=== PATIENT | female | born 1985 | race Two or more races ===

== ENCOUNTER 2017-10-22 00:55 | Emergency (ER) | payer OTHER ==
[~2017-10-22] VITALS: Ht 160 cm; Wt 63.5 kg
[2017-10-22 01:01] VITALS: BP 106/70
[2017-10-22] MEDS ORDERED: diphenhydrAMINE HCL 25 MG CAPSULE ONE (01:24)
[2017-10-22] MEDS ORDERED: diphenhydrAMINE HCL 25 MG CAPSULE PO ONE (01:30)
== END 2017-10-22 01:38 | disposition home or self-care (01) ==
LOC: ER 01:02
DX: R21 Rash and other nonspecific skin eruption (principal); T50.905A Adverse effect of unspecified drugs, medicaments and biological substances, initial encounter; R50.9 Fever, unspecified; F32.9 Major depressive disorder, single episode, unspecified; Z88.0 Allergy status to penicillin; Z88.2 Allergy status to sulfonamides; Y92.89 Other specified places as the place of occurrence of the external cause
CPT/HCPCS: 99282; A4606; Q0163; Z7610

== ENCOUNTER 2020-01-29 16:34 | Emergency (ER) | payer BC, OTHER ==
[~2020-01-29] VITALS: Ht 165.1 cm; Wt 67.6 kg
--- NOTE | 2020-01-29 17:00 | NUR ---
patient came in to the er c/o jaw pain x 4 days. On room air, breathing evenly and unlabored. Kept comfortable, will continue to monitor accordingly.
[2020-01-29 18:42] VITALS: BP 118/65
--- NOTE | 2020-01-29 18:43 | NUR ---
Patient discharged to home in stable condition. Written and verbal after care instructions given. Patient verbalizes understanding of instruction.
== END 2020-01-29 18:42 | disposition home or self-care (01) ==
LOC: ER 16:39
DX: M26.602 Left temporomandibular joint disorder, unspecified (principal); E28.2 Polycystic ovarian syndrome; F32.9 Major depressive disorder, single episode, unspecified; Z90.89 Acquired absence of other organs; Z88.0 Allergy status to penicillin
CPT/HCPCS: 70110-TC

== ENCOUNTER 2024-08-21 17:39 | Emergency (ER) | payer OTHER ==
[~2024-08-21] VITALS: Ht 160 cm; Wt 61.2 kg
[2024-08-21] MEDS ORDERED: ACET325T53 PO (20:34)
[2024-08-21] MEDS ORDERED: IBUP-1490 PO (20:34)
[2024-08-21] MEDS: KETOROLAC TROMETHAMINE 15 MG/ML VIAL IM ONE (20:58)
[2024-08-21] MEDS ORDERED: ONDANSETRON 4 MG TAB.RAPDIS ONE (22:18)
[2024-08-21] MEDS: ONDANSETRON 4 MG TAB.RAPDIS SL ONE (22:18)
[2024-08-21 22:28] VITALS: BP 118/61; TEMP 98.2; O2SAT 99
== END 2024-08-21 22:28 | disposition home or self-care (01) ==
LOC: ER 17:45
DX: S82.141A Displaced bicondylar fracture of right tibia, initial encounter for closed fracture (principal); S09.8XXA Other specified injuries of head, initial encounter; R10.2 Pelvic and perineal pain; R11.0 Nausea; E28.2 Polycystic ovarian syndrome; X58.XXXA Exposure to other specified factors, initial encounter; Y93.01 Activity, walking, marching and hiking; Y92.89 Other specified places as the place of occurrence of the external cause; Y99.8 Other external cause status; Z88.0 Allergy status to penicillin; Z88.2 Allergy status to sulfonamides
CPT/HCPCS: 29505; 70450; 72190; 73564; 96372; 99285; A6403; J1885; Q0162